=== PATIENT | male | born 1970 | race Caucasian/White ===

== ENCOUNTER 2025-02-09 10:49 | Inpatient (IN) | payer BC ==
[~2025-02-09] VITALS: Ht 162.6 cm; Wt 73.6 kg
[2025-02-09] MEDS: IV LR 1000 ML 1,000 ML BAG IV ONE (11:10)
[2025-02-09 11:18] LABS: PLATELET COUNT (AUTO) 161 K/uL (150-450); RED BLOOD CELL COUNT(AUTO) 4.97 MIL/uL (4.5-6.0); RED CELL DISTRIBUTION WIDTH 14.8 % (11.5-15.0); WHITE BLOOD COUNT (AUTO) 7.5 K/uL (4.3-11.0)
[2025-02-09] MEDS ORDERED: LORAZEPAM INJ 2 MG/ML VIAL ONE ×2 (11:25→11:26)
[2025-02-09] MEDS ORDERED: CT SWABBABLE VALVE TRANS SET 1 EA INFUS.SET MC ONE (11:27)
[2025-02-09] MEDS ORDERED: IOHEXOL-350 100 ML VIAL IV ONE (11:27)
[2025-02-09] MEDS ORDERED: IV NS 0.9% 250 ML IV ONE (11:27)
[2025-02-09 11:33] LABS: CALCIUM, SERUM 9.3 mg/dL (8.5-10.1); CREATININE 1.3 mg/dL (0.6-1.3); SODIUM SERUM 144 mmol/L (136-145); UREA NITROGEN, BLOOD 14 mg/dL (7-18)
[2025-02-09] MEDS: LORAZEPAM INJ 2 MG/ML VIAL IV ONE ×2 (11:35→11:40)
[2025-02-09 11:39] LABS: ALCOHOL, BLOOD < 3 mg/dL (0-10); ASPARTATE AMINOTRANSFERASE 30 U/L (15-37); TOTAL PROTEIN, SERUM 8.1 g/dL (6.4-8.2)
[2025-02-09 11:40] LABS: PHENOBARBITAL 0 ug/ml (15-39); VALPROIC ACID < 3 ug/mL (50-100)
[2025-02-09] MEDS ORDERED: TOPI25TA49 PO (11:49)
[2025-02-09] MEDS ORDERED: GABA300C PO (11:49)
[2025-02-09] MEDS ORDERED: ARIP2TAB3 PO (11:49)
[2025-02-09] MEDS ORDERED: NALT50TA PO (11:49)
[2025-02-09] MEDS ORDERED: LEVE500T9 PO (11:49)
[2025-02-09] MEDS ORDERED: SERT50TA12 PO (11:49)
[2025-02-09] MEDS ORDERED: METO25TA6 PO (11:49)
[2025-02-09] MEDS ORDERED: ONDA4TAB11 SL (11:49)
[2025-02-09] MEDS ORDERED: QUET50TA PO (11:49)
[2025-02-09] MEDS ORDERED: ACAM333T8 PO (11:49)
[2025-02-09] MEDS: LEVETIRACETAM (500MG) 1,000 MG in IV NS 0.9% 90 ML IV ONE (11:58)
[2025-02-09 13:26] LABS: APPEARANCE,URINE CLEAR (CLEAR); BLOOD, URINE NEGATIVE Ery/uL (NEGATIVE); LEUKOCYTE ESTERASE ,URINE NEGATIVE (NEGATIVE); NITRITE, URINE NEGATIVE (NEGATIVE); UGLUCOSE NEGATIVE (NEGATIVE)
[2025-02-09 13:40] LABS: AMPHETAMINE, URINE NEGATIVE (NEGATIVE); BARBITURATE, URINE NEGATIVE (NEGATIVE); BENZODIAZEPINE, URINE NEGATIVE (NEGATIVE); COCCAINE, URINE NEGATIVE (NEGATIVE); OPIATE, URINE NEGATIVE (NEGATIVE)
[2025-02-09 13:45] LABS: CANNABINOID, URINE POSITIVE (NEGATIVE)
[2025-02-09] MEDS ORDERED: QUETIAPINE FUMARATE 25 MG TABLET PO PRN (15:30)
[2025-02-09] MEDS ORDERED: ONDANSETRON HCL/PF 4 MG/2 ML VIAL IVP PRN (15:30)
[2025-02-09] MEDS ORDERED: LORAZEPAM 0.5 MG TABLET PO PRN (15:30)
[2025-02-09] MEDS ORDERED: ACETAMINOPHEN 325 MG TABLET PO PRN (15:30)
[2025-02-09] MEDS ORDERED: HYDROCODONE/APAP 5/325MG TABLET PO PRN (15:30)
[2025-02-09] MEDS ORDERED: MAGNESIUM HYDROXIDE 30 ML UDC PO PRN (15:30)
[2025-02-09] MEDS ORDERED: LORAZEPAM INJ 2 MG/ML VIAL IV PRN (15:30)
[2025-02-09] MEDS: FOLIC ACID 1 MG TABLET PO SCH (16:35)
[2025-02-09] MEDS: ASPIRIN 81 MG TAB.CHEW PO SCH (16:35)
[2025-02-09] MEDS: CHLORDIAZEPOXIDE HCL 25 MG CAPSULE PO SCH (16:35)
[2025-02-09] MEDS: IV 1/2NS 1000 ML 1,000 ML IV PRN (16:35)
[2025-02-09] MEDS: GABAPENTIN 300 MG CAPSULE PO SCH (16:35)
[2025-02-09] MEDS: THIAMINE HCL 100 MG TABLET PO SCH (16:35)
[2025-02-09] MEDS: METOPROLOL TARTRATE 25 MG TABLET PO SCH (17:00)
[2025-02-09] MEDS: TOPIRAMATE 25 MG TABLET PO SCH (18:07)
[2025-02-09 20:00] VITALS: BP 129/79; TEMP 97.7
[2025-02-09] MEDS: ATORVASTATIN 40 MG TABLET PO SCH (21:25)
[2025-02-09] MEDS: LEVETIRACETAM (250 MG) 250 MG TABLET PO SCH (21:26)
[2025-02-10] VITALS: BP 124/76; TEMP 97.9
[2025-02-10 04:00] VITALS: BP_SYST 124; BP_SYST 131; BP_DIAS 81; BP_DIAS 86; TEMP 97.6; O2SAT 97
[2025-02-10 06:20] LABS: RED BLOOD CELL COUNT(AUTO) 4.56 MIL/uL (4.5-6.0); RED CELL DISTRIBUTION WIDTH 14.3 % (11.5-15.0); WHITE BLOOD COUNT (AUTO) 5.3 K/uL (4.3-11.0)
[2025-02-10 06:41] LABS: CALCIUM, SERUM 8.7 mg/dL (8.5-10.1); CREATININE 1.1 mg/dL (0.6-1.3); PHOSPHORUS 4.1 mg/dL (2.5-4.9); SODIUM SERUM 142.0 mmol/L (136-145); UREA NITROGEN, BLOOD 15.0 mg/dL (7-18)
[2025-02-10 06:46] LABS: PLATELET COUNT (AUTO) 127 K/uL (150-450)
[2025-02-10 07:06] LABS: LDL 71.0 mg/dL (0-99)
[2025-02-10] MEDS: SERTRALINE HCL 50 MG TABLET PO SCH (08:53)
[2025-02-10 08:54] VITALS: BP 149/87
[2025-02-10] MEDS: PANTOPRAZOLE 40 MG TABLET.DR PO SCH (08:56)
[2025-02-10] MEDS ORDERED: LEVE250T2 PO (13:05)
[2025-02-10] MEDS ORDERED: THIA100T88 PO (13:05)
== END 2025-02-10 17:09 | disposition home or self-care (01) | DRG 101 ==
LOC: ER 10:51 → TELE1 14:00
PROVIDERS: ADMIT Nurse Practitioner Family; ATTEND Nurse Practitioner Acute Care
DX: G40.909 Epilepsy, unspecified, not intractable, without status epilepticus (principal); G93.45 Developmental and epileptic encephalopathy; G83.84 Todd's paralysis (postepileptic); I95.1 Orthostatic hypotension; F10.10 Alcohol abuse, uncomplicated; Y90.0 Blood alcohol level of less than 20 mg/100 ml; F32.A Depression, unspecified; I10 Essential (primary) hypertension; G93.89 Other specified disorders of brain; Z86.73 Personal history of transient ischemic attack (TIA), and cerebral infarction without residual deficits
CPT/HCPCS: 36415; 70450-TC; 70496-TC; 70498-TC; 71045-TC; 80048-TC; 80061-TC; 80076-TC; 80164-TC; 80184; 80185-TC; 83735-TC; 84100-TC; 85025-TC; 85730-TC; 92507-TC; 92521; 97110-TC; 97116-TC; 97530-TC; A4223; G0378; G0480; J1953; J2060; J3490; J7030; J7050; J7120; Q9967